=== PATIENT | male | born 1965 | race Caucasian/White ===

== ENCOUNTER 2020-07-27 09:36 | Day surgery (SDC) | payer BC ==
[2020-07-26 09:07] VITALS: BMI 30.4
[~2020-07-27 09:36] MED LIST: LACTATED RINGERS 1,000 ML IV SCH; LIDOCAINE 1% (10MG/ML) FOR IV START INTRADERMA PRN
[2020-07-27 10:15] VITALS: TEMP 97
[2020-07-27] MEDS ORDERED: fentaNYL (PF) 50 MCG/ML 2 ML AMP ONE (11:13)
[2020-07-27] MEDS ORDERED: MIDAZOLAM 2 MG/2 ML VIAL ONE (11:13)
[2020-07-27] MEDS ORDERED: PROPOFOL 10 MG/ML 20 ML VIAL IV ONE (11:13)
--- NOTE | 2020-07-27 11:18 | P.GSHP ---
History of Present Illness H&P Date: 07/27/20 Chief Complaint: Screening colonoscopy This a 55-year-old male who presents today for screening colonoscopy. Patient denies a significant GI complaints. Past Medical History Past Medical History: Hyperlipidemia History of Any Multi-Drug Resistant Organisms: None Reported Past Surgical History: Appendectomy Additional Past Surgical History / Comment(s): Spleenectomy, Hiatal Hernia Surgery. Past Anesthesia/Blood Transfusion Reactions: No Reported Reaction Past Psychological History: No Psychological Hx Reported Smoking Status: Never smoker Past Alcohol Use History: Occasional Past Drug Use History: None Reported - Past Family History Father Family Medical History: Cancer Additional Family Medical History / Comment(s): Prostate Cancer. Medications and Allergies Home Medications Medication Instructions Recorded Confirmed Type Fiber Supplement 1 dose PO DAILY 07/26/20 07/26/20 History Multivitamins, Thera [Multivitamin 1 tab PO DAILY 07/26/20 07/26/20 History (formulary)] Rosuvastatin [Crestor] 10 mg PO HS 07/26/20 07/26/20 History Allergies Allergy/AdvReac Type Severity Reaction Status Date / Time No Known Allergies Allergy Verified 07/26/20 09:08 Surgical - Exam Vital Signs Temp Pulse Resp BP Pulse Ox 97 F L 73 20 134/88 96 07/27/20 10:11 07/27/20 10:11 07/27/20 10:11 07/27/20 10:11 07/27/20 10:11 - General well developed, well nourished, no distress - Eyes PERRL - ENT normal pinna - Neck no masses - Respiratory normal expansion - Cardiovascular Rhythm: regular - Abdomen Abdomen: soft, non tender Assessment and Plan Assessment: We'll perform screening colonoscopy
--- NOTE | 2020-07-27 11:26 | P.OP ---
Date of Procedure: 07/27/20 Preoperative Diagnosis: Screening colonoscopy Postoperative Diagnosis: Diverticulosis Procedure(s) Performed: Colonoscopy Anesthesia: MAC Surgeon: Marcos Chung Pathology: none sent Condition: stable Disposition: PACU Description of Procedure: The patient's placed on the endoscopy table in the lateral position. He received IV sedation. Digital rectal exam was performed which revealed no abnormalities. The flexible colonoscope was then placed patient anus and passed throughout the entire colon. The ileocecal valve was visualized. The cecum, ascending and transverse colon appeared normal. In the descending; there is extensive diverticular changes. There is no evidence of diverticulitis. Scope was then brought back the rectum this appeared normal. Scope was withdrawn for patient.
[2020-07-27 11:30] VITALS: RESP 16
[2020-07-27 11:51] VITALS: BP 137/84; PULSE 75
== END 2020-07-27 12:09 | disposition home or self-care (01) ==
LOC: ORWHC2ENDO 09:36
PROVIDERS: ATTEND Surgery
DX: Z12.11 Encounter for screening for malignant neoplasm of colon (principal); K57.30 Diverticulosis of large intestine without perforation or abscess without bleeding; E78.5 Hyperlipidemia, unspecified; Z90.81 Acquired absence of spleen; Z79.899 Other long term (current) drug therapy; Z98.890 Other specified postprocedural states; Z80.42 Family history of malignant neoplasm of prostate
CPT/HCPCS: G0121; J2250; J3010; J2704; 45378

== ENCOUNTER 2022-12-15 10:10 | Emergency (ER) | payer BC ==
--- NOTE | 2022-12-15 12:13 | XR ---
EXAMINATION TYPE: XR knee complete LT DATE OF EXAM: 12/15/2022 COMPARISON: None HISTORY: 57-year-old male with pain TECHNIQUE: 3 views FINDINGS: Prepatellar soft tissue swelling mechanism appears intact. No knee joint effusion. No acute fracture, subluxation, or lesion. Some irregularity along the neck of the fibula; query any history of old tra antonio to this location. IMPRESSION: Prepatellar soft tissue swelling. This could represent contusion or bursitis. No acute osseous abnorm ality seen.
--- NOTE | 2022-12-15 12:24 | ED ---
General Adult HPI - General Chief complaint: Extremity Injury, Lower Stated complaint: Recheck Time Seen by Provider: 12/15/22 11:13 Source: patient, RN notes reviewed Mode of arrival: ambulatory Limitations: no limitations - History of Present Illness Initial comments: 57-year-old male presents to the emergency department chief complaint of left knee swelling. Patient states that he was working on his knees in an attic on . He states that he had left knee swelling and redness following this. Denies any puncture wounds or injury. He denies fever, chills. He states that the pain is somewhat painful to walk on. Past medical history includes hyperlipidemia. - Related Data Home Medications Medication Instructions Recorded Confirmed Fiber Supplement 1 dose PO DAILY 07/26/20 07/26/20 Multivitamins, Thera [Multivitamin 1 tab PO DAILY 07/26/20 07/26/20 (formulary)] Rosuvastatin [Crestor] 10 mg PO HS 07/26/20 07/26/20 Allergies Allergy/AdvReac Type Severity Reaction Status Date / Time No Known Allergies Allergy Verified 12/15/22 10:16 Review of Systems ROS Statement: Those systems with pertinent positive or pertinent negative responses have been documented in the HPI. ROS Other: All systems not noted in ROS Statement are negative. Past Medical History Past Medical History: Hyperlipidemia History of Any Multi-Drug Resistant Organisms: None Reported Past Surgical History: Appendectomy Additional Past Surgical History / Comment(s): Spleenectomy, Hiatal Hernia Surgery. Past Anesthesia/Blood Transfusion Reactions: No Reported Reaction Past Psychological History: No Psychological Hx Reported Smoking Status: Never smoker Past Alcohol Use History: Occasional Past Drug Use History: None Reported - Past Family History Father Family Medical History: Cancer Additional Family Medical History / Comment(s): Prostate Cancer. General Exam Limitations: no limitations General appearance: alert, in no apparent distress Head exam: Present: atraumatic, normocephalic, normal inspection Eye exam: Present: normal appearance, PERRL, EOMI. Absent: scleral icterus, conjunctival injection, periorbital swelling ENT exam: Present: normal exam, mucous membranes moist Neck exam: Present: normal inspection. Absent: tenderness, meningismus, lymphadenopathy Respiratory exam: Present: normal lung sounds bilaterally. Absent: respiratory distress, wheezes, rales, rhonchi, stridor Cardiovascular Exam: Present: regular rate, normal rhythm, normal heart sounds. Absent: systolic murmur, diastolic murmur, rubs, gallop, clicks Extremities exam: Present: normal inspection, full ROM, normal capillary refill, other (Anterior left knee swelling and mild erythema). Absent: tenderness, pedal edema, joint swelling, calf tenderness Back exam: Present: normal inspection Neurological exam: Present: alert, oriented X3 Psychiatric exam: Present: normal affect, normal mood Skin exam: Present: warm, dry, intact, normal color. Absent: rash Course Vital Signs 12/15/22 12/15/22 10:13 12:33 Temperature 98 F 97.9 F Pulse Rate 78 77 Respiratory 20 18 Rate Blood Pressure 157/108 146/103 O2 Sat by Pulse 99 97 Oximetry Medical Decision Making - Medical Decision Making Was pt. sent in by a medical professional or institution (, [place], [employer]CR[employer]ILM MOUNTER, urgent care, hospital, or shelter...) When possible be specific @ -Patient was sent in by [facility] urgent care for evaluation of the left knee, no x-rays were obtained at the urgent care Did you speak to anyone other than the patient for history (EMS, parent, family, police, friend...)? What history was obtained from this source @ -No Did you review nursing and triage notes (agree or disagree)? Why? @ -I reviewed and agree with nursing and triage notes Were old charts reviewed (outside hosp., previous admission, EMS record, old EKG, old radiological studies, urgent care reports/EKG's, shelter records)? Report findings @ -No old charts were reviewed Differential Diagnosis (chest pain, altered mental status, abdominal pain women, abdominal pain men, vaginal bleeding, weakness, fever, dyspnea, syncope, headache, dizziness, GI bleed, back pain, seizure, CVA, palpatations, mental health, musculoskeletal)? @ -Differential Musculoskeletal Muscular strain, contusion, ligament sprain, fracture, arthritis, septic arthritis, bursitis, cellulitis, muscle spasm, nerve compression, DVT, arterial occlusion, herpes zoster, electrolyte abnormality, tumor.... This is not meant t o be in all inclusive list EKG interpreted by me (3pts min.). @ -None X-rays interpreted by me (1pt min.). @ -X-ray of the left knee showed prepatellar soft tissue swelling which could represent contusion or bursitis, no acute fracture CT interpreted by me (1pt min.). @ -None done U/S interpreted by me (1pt. min.). @ -None done What testing was considered but not performed or refused? (CT, X-rays, U/S, labs)? Why? @ -None What meds were considered but not given or refused? Why? @ -None Did you discuss the management of the patient with other professionals (professionals i.e. , [place], [employer] MOUNTER, lab, RT, psych nurse, director social service, no bake molder, teacher, surveillance dual rate officer, egg caser)? Give summary @ -No Was smoking cessation discussed for >3mins.? @ -No Was critical care preformed (if so, how long)? @ -No Were there social determinants of health that impacted care today? How? (Homelessness, low income, unemployed, alcoholism, drug addiction, transportation, low edu. Level, literacy, decrease access to med. care, half-way, rehab)? @ -No Was there de-escalation of care discussed even if they declined (Discuss DNR or withdrawal of care, Hospice)? DNR status @ -No What co-morbidities impacted this encounter? (DM, HTN, Smoking, COPD, CAD, Cancer, CVA, ARF, Chemo, Hep., AIDS, mental health diagnosis, sleep apnea, morbid obesity)? @ -None Was patient admitted / discharged? Hospital course, mention meds given and route, prescriptions, significant lab abnormalities, going to OR and other pertinent info. @ -discharged. Patient presented to emergency department following evaluation at urgent care for chief complaint of left knee pain and swelling after working on his knees on . Patient has normal range of motion to the left knee without pain out of proportion. There is some mild erythema and swelling to his left knee. X-ray of the left knee was obtained which showed prepatellar soft tissue swelling which could represent contusion or bursitis. Based on the story of the patient working on his knees recently and the x-ray, discussed with the patient that this is likely bursitis. Patient was evaluated by my attending, Dr. Martínez who also agrees with this assessment. Patient discharged in stable condition and advised to take anti-inflammatories. Return precautions discussed. Undiagnosed new problem with uncertain prognosis? @ -No Drug Therapy requiring intensive monitoring for toxicity (Heparin, Nitro, Insulin, Cardizem)? @ -No Were any procedures done? @ -No Diagnosis/symptom? @ -Bursitis Acute, or Chronic, or Acute on Chronic? @ -Acute Uncomplicated (without systemic symptoms) or Complicated (systemic symptoms)? @ -Uncomplicated Side effects of treatment? @ -No Exacerbation, Progression, or Severe Exacerbation? @ -No Poses a threat to life or bodily function? How? (Chest pain, USA, VT, pneumonia, PE, COPD, DKA, ARF, appy, cholecystitis, CVA, Diverticulitis, Homicidal, Suicidal, threat to staff... and all critical care pts) @ -No Disposition Clinical Impression: Bursitis Disposition: HOME SELF-CARE Condition: Stable Instructions (If sedation given, give patient instructions): Knee Bursitis (ED) Additional Instructions: Take anti-inflammatory medications such as ibuprofen. Please return to the emergency department if you develop a fever, have worsening pain, or develop other new symptoms. Is patient prescribed a controlled substance at d/c from ED?: No Referrals: Dariusz Preston DO [Primary Care Provider] - 1-2 days Time of Disposition: 12:24
[2022-12-15 12:41] VITALS: PULSE 77; RESP 18
[2022-12-15 12:45] VITALS: TEMP 97.9
[2022-12-15 12:47] VITALS: BP 146/103
== END 2022-12-15 12:49 | disposition home or self-care (01) ==
LOC: EC 10:10
DX: M71.9 Bursopathy, unspecified (principal); E78.5 Hyperlipidemia, unspecified; Z79.899 Other long term (current) drug therapy
CPT/HCPCS: 99283

== ENCOUNTER → 2023-01-23 | Outpatient (CLI) | payer BC ==
--- NOTE | 2023-01-23 14:32 | P.SLEEP ---
History of Present Illness DATE: 01/23/2023 CONSULTATION/NEW PATIENT EVALUATION HISTORY OF PRESENT ILLNESS/SLEEP-WAKE EVALUATION: 57 year old gentleman had been evaluated in the sleep center for possible obstructive sleep apnea hypopnea syndrome. SLEEP SCHEDULE: Usually sleep schedule from 11 PM to 5:30 AM on weekdays and from midnight until 6 AM on weekend. FALLING ASLEEP: No problems with falling asleep. DURING SLEEP: According to patient he says loud snoring and witnessed episodes of stop breathing during the sleep. Positive history of leg movements during the night according to . No history of hypnogogical hallucinations, sleep paralysis, or cataplexy. DURING THE DAY/WAKE STATE: During the day patient feels sleepiness. [place] sleepiness scale is 11. Patient may take nap around 6 -7 PM. PAST MEDICAL HISTORY: Hyperlipidemia. PAST SURGICAL HISTORY: Splenectomy for splenic rupture, appendectomy, surgical treatment for hiatal hernia in 2019. MEDICATIONS: Crestor. SOCIAL HISTORY: Negative for smoking, alcohol consumption occasional. FAMILY HISTORY: Hypertension, heart problems. REVIEW OF SYSTEMS: Loud snoring, sleepiness during the day. No fevers. No double vision. No recent chest pain. No shortness of breath. No abdominal pain. No bleeding episodes. No blood in urine. No seizure episodes. PHYSICAL EXAMINATION: GENERAL: A pleasant patient without any distress. VITAL SIGNS: BP 119/78 , HR 92 , RR 16 , weight 215.6 pounds, height 5 foot 6.5 inches, body mass index 34.3, oxygen saturation at room air 95% . HEENT: PERRLA, EOMI. Evaluation of oropharynx showed tongue protrudes midline, low position of soft palate Mallampati 4. NECK: Supple. No JVD. Thyroid is not palpable. 19 inches in circumference. LUNGS: Clear to percussion and to auscultation. Good air exchange. No wheezing or rhonchi. HEART: S1, S2 regular. No murmurs, gallops or rubs. ABDOMEN: Soft and nontender. Bowel sounds are present. No organomegaly appreciated. EXTREMITIES: No clubbing or cyanosis. ENGINEERING WRITER: Awake, alert, and oriented x3. Cranial nerves 2 to 7 intact. There is no fasciculation or atrophy noted. No focal deficits observed. ASSESSMENT: 1. Loud snoring, witnessed sleep apneas, extremely low position of soft palate Mallampati 4, wide neck 19 inches in circumference, sleepiness with [place] Sleepiness Scale 11. Obstructive sleep apnea hypopnea syndrome. 2. Obesity, body mass index 34.3. 3. Significant amount of leg movements during the night, possibly periodic limb movements. 4. Hyperlipidemia. 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 6 . Status post appendectomy. 7. Status post hiatal hernia repair in 2019. PLAN: 1. Home sleep apnea test for evaluation of patient's breathing during sleep. 2. CPAP/BiPAP titration if sleep study confirms obstructive sleep apnea- hypopnea syndrome. 3. Preferable position during sleep on the side. 4. No driving if patient feels any sleepiness. Patient is aware of civil and criminal liability for unsafe driving. 5. Sleep hygiene with regular sleep time for at least 7.5-8 hours. 6. Watching and losing weight. Thank you very much for referring this patient for consultation. Sincerely, Steve Quinonez MD, PhD, FAASM. Diplomat of [place] [employer], Sleep Medicine Board by [employer] [place] Past Medical History Past Medical History: Hyperlipidemia History of Any Multi-Drug Resistant Organisms: None Reported Past Surgical History: Appendectomy Additional Past Surgical History / Comment(s): Spleenectomy, Hiatal Hernia Surgery. Past Anesthesia/Blood Transfusion Reactions: No Reported Reaction Past Psychological History: No Psychological Hx Reported Smoking Status: Never smoker Past Alcohol Use History: Occasional Past Drug Use History: None Reported - Past Family History Father Family Medical History: Cancer Additional Family Medical History / Comment(s): Prostate Cancer. Medications and Allergies Home Medications Medication Instructions Recorded Confirmed Type Fiber Supplement 1 dose PO DAILY 07/26/20 07/26/20 History Multivitamins, Thera [Multivitamin 1 tab PO DAILY 07/26/20 07/26/20 History (formulary)] Rosuvastatin [Crestor] 10 mg PO HS 07/26/20 07/26/20 History Allergies Allergy/AdvReac Type Severity Reaction Status Date / Time No Known Allergies Allergy Verified 12/15/22 10:16 Sleep Note - Sleep Note Sleep Note: Temperature: Pulse Rate: Respiratory Rate: Blood Pressure: SpO2: Height: Weight: BMI: Neck Circumference:
== END ==
LOC: 3 N SLEEP 14:05
PROVIDERS: ATTEND Internal Medicine
DX: G47.33 Obstructive sleep apnea (adult) (pediatric) (principal); E66.9 Obesity, unspecified; G47.61 Periodic limb movement disorder; G25.81 Restless legs syndrome; G47.69 Other sleep related movement disorders; E78.5 Hyperlipidemia, unspecified; Z99.89 Dependence on other enabling machines and devices; Z68.34 Body mass index [BMI] 34.0-34.9, adult; Z98.890 Other specified postprocedural states
CPT/HCPCS: 99211

== ENCOUNTER 2023-04-13 20:10 | Outpatient (CLI) | payer BC | END 2023-04-14 05:45 | disposition home or self-care (01) | LOC: 3 N SLEEP 20:10 | PROVIDERS: ATTEND Internal Medicine | DX: G47.33 Obstructive sleep apnea (adult) (pediatric) (principal) | CPT/HCPCS: 95811 ==

== ENCOUNTER → 2023-07-17 | Outpatient (CLI) | payer BC ==
--- NOTE | 2023-07-17 17:01 | P.PN ---
Subjective DATE: 07/17/2023 FOLLOW UP VISIT. Patient with obstructive sleep apnea hypopnea syndrome return to sleep center for follow-up visit. Recently patient had sleep study which documented obstructive sleep apnea hypopnea syndrome. Patient was initiated on PAP therapy and today is first visit after treatment was started. Patient was able to use PAP equipment every night for the whole night. The patient does not have significant problems with the mask, PAP pressure and humidification. [place] sleepiness scale is 4, which is normal, improved from 11 before treatment. I checked information from PAP unit. PAP unit pressure 6-12, average 9.8 cm H2O. Usage is 100% and 97 % for more then 4 hours, average 6.5 hours per night. Leak is 9.9 l/m, which is in acceptable range. Apnea Hypopnea Index is 0.9, which is normal. MEDICATIONS:1. Crestor During physical exam: GENERAL: A pleasant patient without any distress. VITAL SIGNS: BP 128/87, HR 75, RR 20, weight 224.8, temperature 97.9, oxygen saturation at room air 97%. HEENT: PERRLA, EOMI.low position of soft palate, Mallapati 4 . NECK: Supple. No JVD. LUNGS: Clear to percussion and to auscultation. Good air exchange. No wheezing or rhonchi. HEART: S1, S2 regular. ABDOMEN: Soft and nontender.[] EXTREMITIES: No clubbing or cyanosis. DISTRICT GAUGER: Awake, alert, and oriented x3. No focal deficit. Impressions: 1. Obstructive sleep apnea-hypopnea syndrome. Patient demonstrated great compliance with treatment, benefiting from treatment. 2. Obesity, patient increased his weight on 9 pounds comparing with previous visit. 3. Hyperlipidemia. 4. 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 5. Status post appendectomy. 6. Status post hiatal hernia repair. Plan: 1. Continue using PAP equipment every night for the whole night. 2. To change air filter at least 1-2 times per month. 3. PAP unit should stay lower then position of the head. 4. Advised patient to remove all remaining water from humidifier canister daily and make it dry after each usage. Refill canister with fresh distilled water before each usage. 5. Sleep hygiene with regular time in bed for at least 8 hours. 6. Precautions related to driving. No driving if feel any sleepiness. 7. I will maintain prescription for PAP supplies including mask, tube, filters. 8. Follow up visit in 6 months or earlier if patient has any problems. 9. Watching and losing weight. Thank you very much for allowing me to participate in the management of your patient. Steve Quinonez MD, PhD, FAASM. Diplomat of [place] [employer], Sleep Medicine Board by [place] [employer] [facility] [facility] [place]
== END ==
LOC: 3 N SLEEP 16:18
PROVIDERS: ATTEND Internal Medicine
DX: G47.33 Obstructive sleep apnea (adult) (pediatric) (principal); E66.9 Obesity, unspecified; E78.5 Hyperlipidemia, unspecified; Z90.49 Acquired absence of other specified parts of digestive tract; Z90.81 Acquired absence of spleen; Z98.890 Other specified postprocedural states; Z99.89 Dependence on other enabling machines and devices
CPT/HCPCS: 99212

== ENCOUNTER → 2024-02-19 | Outpatient (CLI) | payer BC | LOC: 3 N SLEEP 16:30 | PROVIDERS: ATTEND Internal Medicine | CPT/HCPCS: 99212 ==